=== PATIENT | male | born 1990 | race Caucasian/White ===

== ENCOUNTER 2018-02-26 20:47 | Emergency (ER) | payer BC ==
--- NOTE | 2018-02-26 20:53 | EDM.PDOC ---
ED HPI GENERAL MEDICAL PROBLEM - General Chief Complaint: Genitourinary Problem Stated Complaint: TESTICLES Time Seen by Provider: 02/26/18 20:50 - History of Present Illness INITIAL COMMENTS - FREE TEXT/NARRATIVE: HISTORY AND PHYSICAL: History of present illness: Patient is 27-year-old white male presents with right testicle pain started approximately 4:00 this afternoon he denies any trauma he denies any urethral discharge discomfort with urination he states he is not sexually active. Review of systems: As per history of present illness and below otherwise all systems reviewed and negative. Past medical history: As per history of present illness and as reviewed below otherwise noncontributory. Surgical history: As per history of present illness and as reviewed below otherwise noncontributory. Social history: No reported history of drug or alcohol abuse. Family history: As per history of present illness and as reviewed below otherwise noncontributory. Physical exam: HEENT: Atraumatic, normocephalic, pupils reactive, negative for conjunctival pallor or scleral icterus, mucous membranes moist, throat clear, neck supple, nontender, trachea midline. Lungs: Clear to auscultation, breath sounds equal bilaterally, chest nontender. Heart: S1S2, regular, negative for clicks, rubs, or JVD. Abdomen: Soft, nondistended, nontender. Negative for masses or hepatosplenomegaly. Negative for costovertebral tenderness. Pelvis: Stable nontender. Genitourinary: No lesions no discharge mild tenderness to palpation of the right testicle there is no masses positive cremasteric reflex noted Rectal: Deferred. Extremities: Atraumatic, negative for cords or calf pain. Neurovascular unremarkable. Neuro: Awake, alert, oriented. Cranial nerves II through XII unremarkable. Cerebellum unremarkable. Motor and sensory unremarkable throughout. Exam nonfocal. Diagnostics: UA urine C&S testicular ultrasound Therapeutics: None Impression: #1 right testicular pain Definitive disposition and diagnosis as appropriate pending reevaluation and review of above. - Related Data Allergies Allergy/AdvReac Type Severity Reaction Status Date / Time No Known Allergies Allergy Verified 02/26/18 21:20 Home Meds: Home Meds . [No Known Home Meds] 02/26/18 [History] ED ROS GENERAL - Review of Systems Review Of Systems: ROS reveals no pertinent complaints other than HPI. ED EXAM, GENERAL - Physical Exam Exam: See Below (dictation) Course - Vital Signs Last Recorded V/S: Last Vital Signs Temp 36.3 C 02/26/18 20:47 Pulse 89 02/26/18 20:47 Resp 16 02/26/18 20:47 BP 131/81 02/26/18 20:47 Pulse Ox 97 02/26/18 20:47 - Orders/Labs/Meds Orders: Active Orders 24 hr Category Date Time Status Scrotal Duplex Ltd [US] Stat Exams 02/26/18 20:54 Taken Scrotum and Contents [US] Routine Exams 02/26/18 20:58 Taken CHLAMYDIA AND GONORRHEA BY TMA Stat Lab 02/26/18 21:09 Received CULTURE URINE [RM] Stat Lab 02/26/18 21:09 Ordered UA W/MICROSCOPIC [URIN] Stat Lab 02/26/18 21:09 Ordered Labs: Laboratory Tests 02/26/18 Range/Units 21:09 Urine Color YELLOW Urine Appearance CLEAR Urine pH 5.5 (5.0-8.0) Ur Specific [place] 1.020 (1.001-1.035) Urine Protein NEGATIVE (NEGATIVE) mg/dL Urine Glucose (UA) NEGATIVE (NEGATIVE) mg/dL Urine Ketones NEGATIVE (NEGATIVE) mg/dL Urine Occult Blood NEGATIVE (NEGATIVE) Urine Nitrite NEGATIVE (NEGATIVE) Urine Bilirubin NEGATIVE (NEGATIVE) Urine Urobilinogen 0.2 (<2.0) EU/dL Ur Leukocyte Esterase NEGATIVE (NEGATIVE) Urine RBC NONE SEEN (0-2/HPF) Urine WBC 0-1 (0-5/HPF) Ur Epithelial Cells RARE (NONE-FEW) Urine Bacteria RARE (NEGATIVE) Urine Mucus LIGHT (NONE-MOD) Departure - Departure Time of Disposition: 21:48 Disposition: Home, Self-Care 01 Condition: Good Clinical Impression: Testicular pain, Hydrocele in adult - Discharge Information Forms: ED Department Discharge Additional Instructions: The following information is given to patients seen in the emergency department who are being discharged to home. This information is to outline your options for follow-up care. We provide all patients seen in our emergency department with a follow-up referral. The need for follow-up, as well as the timing and circumstances, are variable depending upon the specifics of your emergency department visit. If you don't have a primary care physician on staff, we will provide you with a referral. We always advise you to contact your personal physician following an emergency department visit to inform them of the circumstance of the visit and for follow-up with them and/or the need for any referrals to a consulting specialist. The emergency department will also refer you to a specialist when appropriate. This referral assures that you have the opportunity for followup care with a specialist. All of these measure are taken in an effort to provide you with optimal care, which includes your followup. Under all circumstances we always encourage you to contact your private physician who remains a resource for coordinating your care. When calling for followup care, please make the office aware that this follow-up is from your recent emergency room visit. If for any reason you are refused follow-up, please contact the [facility] emergency department at and asked to speak to the emergency department charge nurse. [facility] - Urology [address] [place] [id number] [employer] supporter as directed call or schedule appointment with urology above Motrin or Tylenol as directed return as needed as discussed[] - My Orders Last 24 Hours: My Active Orders 02/26/18 20:54 Scrotal Duplex Ltd [US] Stat 02/26/18 20:58 Scrotum and Contents [US] Routine 02/26/18 21:09 CHLAMYDIA AND GONORRHEA BY TMA Stat CULTURE URINE [RM] Stat UA W/MICROSCOPIC [URIN] Stat - Assessment/Plan Last 24 Hours: My Active Orders 02/26/18 20:54 Scrotal Duplex Ltd [US] Stat 02/26/18 20:58 Scrotum and Contents [US] Routine 02/26/18 21:09 CHLAMYDIA AND GONORRHEA BY TMA Stat CULTURE URINE [RM] Stat UA W/MICROSCOPIC [URIN] Stat
--- NOTE | 2018-02-27 10:17 | US ---
EXAM DATE: 02/26/18 PATIENT'S AGE: 27 Patient: LUCIANO DOMÍNGUEZ Facility: [place], [place] Site . Site : 1992 Study: US Testicle [id number]/2/2018 9:28:07 PM Ordering Physician: Rohit Whitaker Final Report: INDICATION: Right testicular pain TECHNIQUE: Ultrasound of the scrotum and contents. Sonographic dillon scale images were obtained with spectral and color Doppler waveform and spectral waveform analysis of the testicles. COMPARISON: None FINDINGS: Right testicle: 4.3 centimeters x 3.8 centimeters x 2.4 centimeters. Normal echotexture. No masses. No suspicious calcifications. Normal arterial and venous and blood flow using Doppler and spectral waveform analysis. Left testicle: 3.9 centimeters x 3 4 centimeter x 2.6 centimeter. Normal echotexture. No masses. No suspicious calcifications. Normal arterial and venous and blood flow using Doppler and spectral waveform analysis. Epididymis: Unremarkable bilaterally. Normal blood flow. Other: Small bilateral hydroceles. No sign of varicocele. Scrotal wall is normal. IMPRESSION: Small bilateral hydroceles otherwise unremarkable ultrasound of the scrotum and contents. Dictated by Mainor Flores MD @ 02/26/2018 9:38:04 PM Dictated by: Mainor Flores MD @ 02/26/2018 21:38:10 (Electronic Signature) Report Signed by Proxy. VALERIA
--- NOTE | 2018-02-27 10:18 | US ---
EXAM DATE: 02/26/18 PATIENT'S AGE: 27 Patient: LUCIANO DOMÍNGUEZ Facility: [place], [place] Site . Site : 1990 Study: US Testicle [id number]/2/2018 9:28:07 PM Ordering Physician: Rohit Whitaker Final Report: INDICATION: Right testicular pain TECHNIQUE: Ultrasound of the scrotum and contents. Sonographic dillon scale images were obtained with spectral and color Doppler waveform and spectral waveform analysis of the testicles. COMPARISON: None FINDINGS: Right testicle: 4.3 centimeters x 3.8 centimeters x 2.4 centimeters. Normal echotexture. No masses. No suspicious calcifications. Normal arterial and venous and blood flow using Doppler and spectral waveform analysis. Left testicle: 3.9 centimeters x 3 4 centimeter x 2.6 centimeter. Normal echotexture. No masses. No suspicious calcifications. Normal arterial and venous and blood flow using Doppler and spectral waveform analysis. Epididymis: Unremarkable bilaterally. Normal blood flow. Other: Small bilateral hydroceles. No sign of varicocele. Scrotal wall is normal. IMPRESSION: Small bilateral hydroceles otherwise unremarkable ultrasound of the scrotum and contents. Dictated by Mainor Flores MD @ 02/26/2018 9:38:04 PM Dictated by: Mainor Flores MD @ 02/26/2018 21:38:10 (Electronic Signature) Report Signed by Proxy. VALERIA
== END 2018-02-26 22:05 | disposition home or self-care (01) ==
LOC: MW.ED 20:47 → MERGE 20:47 → MW.ED 22:05
DX: N50.811 Right testicular pain (principal); N43.3 Hydrocele, unspecified
CPT/HCPCS: 76870; 76870-26; 81001; 87086; 87491; 87591; 93976; 93976-26; 99283; 99284-25